=== PATIENT | female | born 1955 | race American Indian/Alaskan Native ===

== ENCOUNTER 2018-10-06 15:39 | Outpatient (CLI) | payer MEDICARE ==
[2018-10-06 16:24] LABS: Bilirubin,Urine NEG (Negative); Blood,Urine NEG (Negative); Color,Urine Yellow (Yellow); Mucus,Urine FEW /HPF; Protein,Urine <15 mg/dL mg/dL (Negative); Urobilinogen,Urine < 2.0 mg/dL (<2.0)
[2018-10-06 16:35] LABS: Creatinine,Urine 150.6 mg/dL (0.1-20.0); Microalbumin/Creatinine Ratio 44.4 ug/mg
[2018-10-06 16:56] LABS: Calcium 11.3 mg/dL (8.4-10.2)
== END 2018-10-06 15:40 | disposition home or self-care (01) ==
LOC: LAB 15:39
PROVIDERS: ATTEND Internal Medicine Nephrology
DX: N17.9 Acute kidney failure, unspecified (principal); N18.9 Chronic kidney disease, unspecified
CPT/HCPCS: 36415; 80048; 81001; 82043; 83970

== ENCOUNTER 2018-10-20 08:50 | Outpatient (CLI) | payer MEDICARE ==
--- NOTE | 2018-10-20 10:34 | Ultrasound Report ---
ULTRASOUND RENAL BILATERAL HISTORY: Chronic kidney disease, stage III. TECHNIQUE: transabdominal ultrasound with color Doppler interrogation. COMPARISON: none. FINDINGS: The right kidney measures 10.3 x 4.1 x 4.7cm. Right renal cortex: 1.4cm. The left kidney measures 11.0-5.1 x 5.3cm. Left renal cortex: 1.9cm. The right kidney is normal size but slightly echogenic. The left kidney demonstrates normal echogenicity. There is a rather large unilocular exophytic cyst from the superior left kidney measuring up to 6.2 cm in diameter. No evidence mass, nephrolithiasis, hydronephrosis or perinephric fluid. The views of the bladder and the region of the ureters appear normal. IMPRESSION: Echogenic right kidney consistent with nonspecific renal parenchymal disease. Normal ultrasound appearance of the left kidney. Left renal cyst.
== END 2018-10-20 08:51 | disposition home or self-care (01) ==
LOC: US 08:50
PROVIDERS: ATTEND Internal Medicine Nephrology
DX: N18.3 Chronic kidney disease, stage 3 (moderate) (principal)
CPT/HCPCS: 76770

== ENCOUNTER 2018-11-25 09:45 | Outpatient (CLI) | payer MEDICARE ==
[2018-11-25 10:33] LABS: Calcium 10.8 mg/dL (8.4-10.2)
[2018-11-25 10:34] LABS: Bacteria,Urine 1+ /HPF (Negative); Bilirubin,Urine NEG (Negative); Blood,Urine NEG (Negative); Color,Urine Yellow (Yellow); Creatinine,Urine 238.9 mg/dL (0.1-20.0); Hyaline Casts,Urine 1 /LPF; Microalbumin/Creatinine Ratio 11.7 ug/mg; Mucus,Urine FEW /HPF; Protein,Urine <15 mg/dL mg/dL (Negative); Urobilinogen,Urine < 2.0 mg/dL (<2.0)
== END 2018-11-25 09:46 | disposition home or self-care (01) ==
LOC: LAB 09:45
PROVIDERS: ATTEND Internal Medicine Nephrology
DX: N17.9 Acute kidney failure, unspecified (principal); R82.998 Other abnormal findings in urine
CPT/HCPCS: 36415; 80048; 81001; 82043; 87086